=== PATIENT | female | born 1990 | race Caucasian/White ===

== ENCOUNTER 2016-11-27 19:00 | Inpatient (IN) | payer BC, OTHER ==
[2016-11-27] MEDS ORDERED: FENTANYL 100MCG/2ML SOL IV PRN (19:13)
[2016-11-27] MEDS ORDERED: CARBOPROST 250 MCG/ML SOL IM PRN (19:13)
[2016-11-27] MEDS ORDERED: OXYTOCIN 10000 MU/ML SOL IM PRN (19:13)
[2016-11-27] MEDS ORDERED: MEPIVACAINE HCL 1% MPF 30 ML SOL INFIL PRN (19:13)
[2016-11-27] MEDS ORDERED: METHYLERGONOVINE MALEATE 0.2 MG/ML SOL IM PRN (19:13)
[2016-11-27] MEDS: SODIUM CHLORIDE 0.9% FLUSH 10 ML SOL IV SCH (21:01)
[2016-11-27 21:10] LABS: BASOPHILS % (AUTO) 1 % (0-3); EOSINOPHILS % (AUTO) 1 % (0-9); HEMATOCRIT 37 % (35-47); MEAN CORPUSCULAR HGB CONC 34.1 gm/dl (32.0-36.0); MEAN CORPUSCULAR VOLUME 86 fL (81-99); MONOCYTES % (AUTO) 8.6 % (0-12); NEUTROPHILS % (AUTO) 66.5 % (37-80)
[2016-11-27] MEDS ORDERED: ONDANSETRON HCL 4 MG/2 ML SOL IV PRN (21:52)
[2016-11-27] MEDS: SODIUM CHLORIDE 0.9% FLUSH 10 ML SOL IV PRN ×2 (22:04→23:59)
[2016-11-27] MEDS: LACTATED RINGERS 1,000 ML IV PRN (23:59)
[2016-11-28] MEDS: SODIUM CHLORIDE 0.9% FLUSH 10 ML SOL IV SCH ×3 (03:19→20:20)
[2016-11-28] MEDS: LACTATED RINGERS 1,000 ML IV PRN (03:19)
[2016-11-28] MEDS ORDERED: TERBUTALINE SULFATE 1 MG/ML SOL SC PRN (06:38)
[2016-11-28] MEDS ORDERED: OXYTOCIN 10000 MU/ML 20,000 MU in LACTATED RINGERS 1,000 ML IV SCH (07:15)
[2016-11-28] MEDS ORDERED: LACTATED RINGERS 1,000 ML IV SCH ×2 (07:15→12:00)
[2016-11-28] MEDS ORDERED: LACTATED RINGERS 1,000 ML ONE (07:16)
[2016-11-28] MEDS ORDERED: OXYTOCIN 10000 MU/ML SOL ONE (07:16)
[2016-11-28] MEDS ORDERED: NALBUPHINE HCL 20 MG/ML SOL IV PRN (12:00)
[2016-11-28] MEDS ORDERED: DIPHENHYDRAMINE 50 MG/ML SOL IV PRN (12:00)
[2016-11-28] MEDS ORDERED: EPHEDRINE SULFATE 50 MG/ML SOL IV PRN (12:00)
[2016-11-28] MEDS ORDERED: NALOXONE HYDROCHLORIDE 0.4 MG/ML SOL IV PRN (12:00)
[2016-11-28] MEDS: LACTATED RINGERS 1,000 ML IV SCH ×2 (12:40→13:12)
[2016-11-28] MEDS ORDERED: FENTANYL 250 MCG/ 5ML SOL ONE (13:02)
[2016-11-28] MEDS ORDERED: ROPIVACAINE HYDROCHLORIDE 5 MG/ML SOL ONE (13:02)
[2016-11-28] MEDS ORDERED: WITCH HAZEL 1 EA PAD TOP PRN (18:44)
[2016-11-28] MEDS ORDERED: BISACODYL 10 MG SUP PR PRN (18:44)
[2016-11-28] MEDS ORDERED: METHYLERGONOVINE MALEATE 0.2 MG TAB PO PRN (18:44)
[2016-11-28] MEDS ORDERED: FLEET ENEMA PR PRN (18:44)
[2016-11-28] MEDS ORDERED: APAP/HYDROCODONE 325/5 TAB PO PRN (18:44)
[2016-11-28] MEDS ORDERED: BENZOCAINE/MENTHOL 1 SPR TOP PRN (18:44)
[2016-11-28] MEDS ORDERED: TEMAZEPAM 15MG 15 MG CAP PO PRN (18:44)
[2016-11-28] MEDS: DOCUSATE SODIUM 100 MG SGL PO SCH (20:16)
[2016-11-28] MEDS: IBUPROFEN 600 MG TAB PO PRN (20:16)
[2016-11-29] MEDS: IBUPROFEN 600 MG TAB PO PRN ×4 (02:53→22:20)
[2016-11-29] MEDS: SODIUM CHLORIDE 0.9% FLUSH 10 ML SOL IV SCH ×2 (02:55→12:37)
[2016-11-29] MEDS: DOCUSATE SODIUM 100 MG SGL PO SCH ×2 (09:19→21:15)
[2016-11-29 14:34] LABS: ABO A
[2016-11-29 14:36] LABS: RH TYPE Negative
[2016-11-30 02:36] VITALS: RESP 16
[2016-11-30] MEDS: IBUPROFEN 600 MG TAB PO PRN ×2 (04:29→12:28)
[2016-11-30 12:23] VITALS: BP 106/78; PULSE 78; TEMP 97.4; O2SAT 96
[2016-11-30] MEDS: DOCUSATE SODIUM 100 MG SGL PO SCH (12:28)
== END 2016-11-30 15:00 | disposition home or self-care (01) | DRG 560 ==
LOC: OB 19:00 → OBSVTOIN 19:00 → OB 11-28 19:19
PROVIDERS: ADMIT Family Medicine; ATTEND Family Medicine
PROC: 0U7C7ZZ Dilation of Cervix, Via Natural or Artificial Opening (ICD-10-PCS; principal; 2016-11-27)
PROC: 10907ZC Drainage of Amniotic Fluid, Therapeutic from Products of Conception, Via Natural or Artificial Opening (ICD-10-PCS; 2016-11-28)
PROC: 10D07Z6 Extraction of Products of Conception, Vacuum, Via Natural or Artificial Opening (ICD-10-PCS; 2016-11-28)
PROC: 0W8NXZZ Division of Female Perineum, External Approach (ICD-10-PCS; 2016-11-28)
PROC: 0DQR0ZZ Repair Anal Sphincter, Open Approach (ICD-10-PCS; 2016-11-28)
DX: O76 Abnormality in fetal heart rate and rhythm complicating labor and delivery (principal); O70.20 Third degree perineal laceration during delivery, unspecified; Z3A.41 41 weeks gestation of pregnancy; Z37.0 Single live birth; O48.0 Post-term pregnancy
CPT/HCPCS: 36415; 59025; 85018; 85025; 86900; 86901; J0670; J2405; J2590; J2795; J3010; J3105